=== PATIENT | male | born 1930 | race Caucasian/White ===

== ENCOUNTER 2018-08-08 21:17 | Inpatient (IN) | payer MEDICARE, OTHER ==
[~2018-08-08] VITALS: Ht 177.8 cm; Wt 89.6 kg
[~2018-08-08 21:17] MED LIST: ALBU90OI INH; AMLO5 PO; ASCO500 PO; ASPI325 PO; BETA1 PO; CALCAVITDA PO; CHOL10002 PO; CLOT1TC TOP; FISH1000 PO; FLUNNIA; GLIP10 PO; HYDACE10B PO; HYDACE5 PO; Hydrochlorothia50 MG PO; IBUP400 PO; INSN100I SC; INSUASPI SC; LORA10ER PO; LOSHYD PO; METF850 PO; METO50ER PO; MULVITMINF PO; NYST100TC TOP; OMEP20ER PO; POLY17UD PO; RANI150 PO; TAMS.4ER PO; TERA5 PO
[2018-08-08 21:30] LABS: PCO2 Arterial 49.4 mmHg (35-45); PO2 Arterial 75.3 mmHg (80-100); pH Blood Arterial 7.37 (7.35-7.45)
[2018-08-08 21:40] LABS: BASOPHILS ABSOLUTE AUTO 0.09 K/mm3 (0.00-0.23); BASOPHILS PERCENT AUTO 1 % (0-2); EOSINOPHILS ABSOLUTE AUTO 1.11 K/mm3 (0.00-0.68); EOSINOPHILS PERCENT AUTO 13 % (0-6); Hematocrit 45.7 % (37.0-53.0); Hemoglobin 14.3 g/dL (13.5-17.5); IMMATURE GRAN ABSOLUTE AUTO 0.03 K/mm3 (0.00-0.10); IMMATURE GRAN PERCENT AUTO 0 % (0-1); LYMPHOCYTES ABSOLUTE AUTO 1.73 K/mm3 (0.84-5.20); LYMPHOCYTES PERCENT AUTO 21 % (21-46); MONOCYTES ABSOLUTE AUTO 0.73 K/mm3 (0.16-1.47); MONOCYTES PERCENT AUTO 9 % (4-13); Mean Corpuscular HGB 33.2 pg (26.0-34.0); Mean Corpuscular HGB Conc 31.3 g/dL (31.5-36.5); Mean Corpuscular Volume 106 fL (80-100); Mean Platelet Volume 8.8 fL (9.1-12.4); NEUTROPHILS ABSOLUTE AUTO 4.64 K/mm3 (1.96-9.15); NEUTROPHILS PERCENT AUTO 56 % (41-73); Platelet Count 243 K/mm3 (150-400); RDW Standard Deviation 55.3 fL (35.1-46.3); Red Blood Cell Count 4.31 M/mm3 (4.30-5.90); White Blood Cell Count 8.33 K/mm3 (4.00-11.30)
[2018-08-08] MEDS ORDERED: CEFD300 PO (21:44)
[2018-08-08] MEDS ORDERED: TRAZ50 PO (21:44)
[2018-08-08] MEDS ORDERED: Bactrim Ds Tab1 EACH PO (21:45)
[2018-08-08] MEDS ORDERED: DOCCAL240 PO (21:45)
[2018-08-08] MEDS ORDERED: ALBU90OI61 INH (21:46)
[2018-08-08] MEDS ORDERED: BENZ100A PO (21:47)
[2018-08-08] MEDS ORDERED: Mucinex100 MG PO (21:48)
[2018-08-08 22:03] LABS: Alanine Aminotransfer (ALT/SGP 20 U/L (12-78); Albumin, Blood 3.7 g/dL (3.4-5.0); Albumin/Globulin Ratio 0.9 (0.8-1.8); Alk Phos 124 U/L (50-136); Anion Gap 6 mmol/L (6-16); Aspartate Aminotrans (AST/SGOT 14 U/L (12-37); Bilirubin, Total 0.5 mg/dL (0.1-1.0); Blood Urea Nitrogen 20 mg/dL (8-24); Bun/Creatinine Ratio 18.5 (12.0-20.0); CO2, Blood 30 mmol/L (21-32); Calcium, Blood 8.9 mg/dL (8.5-10.1); Chloride, Blood 99 mmol/L (98-108); Creatinine, Blood 1.08 mg/dL (0.60-1.20); Globulin, Blood 3.9 g/dL (2.2-4.0); Glomerular Filtration Rate >60 (60-); Glucose, Blood 126 mg/dL (70-99); Potassium, Blood 4.5 mmol/L (3.5-5.5); Sodium, Blood 135 mmol/L (136-145); Total Protein, Blood 7.6 g/dL (6.4-8.2); Troponin I <0.015 ng/mL (0.000-0.040)
[2018-08-09 06:33] LABS: Hematocrit 43.3 % (37.0-53.0); Hemoglobin 13.5 g/dL (13.5-17.5); Mean Corpuscular HGB 33.3 pg (26.0-34.0); Mean Corpuscular HGB Conc 31.2 g/dL (31.5-36.5); Mean Corpuscular Volume 107 fL (80-100); Mean Platelet Volume 9.2 fL (9.1-12.4); Platelet Count 231 K/mm3 (150-400); RDW Standard Deviation 55.6 fL (35.1-46.3); Red Blood Cell Count 4.05 M/mm3 (4.30-5.90); White Blood Cell Count 7.59 K/mm3 (4.00-11.30)
[2018-08-09 06:52] LABS: Alanine Aminotransfer (ALT/SGP 21 U/L (12-78); Albumin, Blood 3.2 g/dL (3.4-5.0); Albumin/Globulin Ratio 0.9 (0.8-1.8); Alk Phos 112 U/L (50-136); Anion Gap 8 mmol/L (6-16); Aspartate Aminotrans (AST/SGOT 17 U/L (12-37); Bilirubin, Total 0.6 mg/dL (0.1-1.0); Blood Urea Nitrogen 20 mg/dL (8-24); Bun/Creatinine Ratio 20.7 (12.0-20.0); CO2, Blood 25 mmol/L (21-32); Calcium, Blood 8.6 mg/dL (8.5-10.1); Chloride, Blood 99 mmol/L (98-108); Creatinine, Blood 0.97 mg/dL (0.60-1.20); Globulin, Blood 3.7 g/dL (2.2-4.0); Glomerular Filtration Rate >60 (60-); Glucose, Blood 198 mg/dL (70-99); Potassium, Blood 5.2 mmol/L (3.5-5.5); Sodium, Blood 132 mmol/L (136-145); Total Protein, Blood 6.9 g/dL (6.4-8.2)
[2018-08-09] MEDS ORDERED: ACETAMINOPHEN500 MG PO (14:02)
[2018-08-09] MEDS ORDERED: ASPI325EC PO (14:03)
[2018-08-09] MEDS ORDERED: Metformin HCl500 MG PO (14:04)
[2018-08-09] MEDS ORDERED: OMEPRAZOLE MAGN20 MG PO (14:05)
[2018-08-09] MEDS ORDERED: FLONASE ALLERG9.9 ML (14:06)
[2018-08-09] MEDS ORDERED: Vitamin B Comple1 EA PO (14:09)
[2018-08-09] MEDS ORDERED: ASCO500 PO (14:10)
[2018-08-09] MEDS ORDERED: ALBU90OI INH (14:12)
--- NOTE | 2018-08-09 22:30 | NUR ---
RESPIRATORY PANEL COMPLETED AT 2226 AND RESULTS (-).
[2018-08-09 23:51] LABS: Adenovirus Not Detected (NOT DETECT); Bordetella pertussis Not Detected (NOT DETECT); Chlamydophila pneumoniae Not Detected (NOT DETECT); Coronavirus 229E Not Detected (NOT DETECT); Coronavirus HKU1 Not Detected (NOT DETECT); Coronavirus NL63 Not Detected (NOT DETECT); Coronavirus OC43 Not Detected (NOT DETECT); Human Metapneumovirus Not Detected (NOT DETECT); Human Rhinovirus/Enterovirus Not Detected (NOT DETECT); Influenza A Not Detected (NOT DETECT); Influenza A/2009-H1 Not Detected (NOT DETECT); Influenza A/H1 Not Detected (NOT DETECT); Influenza A/H3 Not Detected (NOT DETECT); Influenza B Not Detected (NOT DETECT); Mycoplasma pneumoniae Not Detected (NOT DETECT); Parainfluenza Virus 1 Not Detected (NOT DETECT); Parainfluenza Virus 2 Not Detected (NOT DETECT); Parainfluenza Virus 3 Not Detected (NOT DETECT); Parainfluenza Virus 4 Not Detected (NOT DETECT); Respiratory Syncytial Virus Not Detected (NOT DETECT)
--- NOTE | 2018-08-10 00:30 | NUR ---
SPUTUM SPECIMEN WAS OBTAINED AND SENT AT 0012, RESULTS PENDING. CADENA THICK SPUTUM OBSERVED BUT COUGH HAS BEEN DRY AND SEAT MAKER OTHERWISE.
--- NOTE | 2018-08-10 04:48 | NUR ---
SUMMARY: PT T/F'D TO ROOM 331 PRIOR TO SHIFT CHANGE BUT ADMISSION PAPERWORK COMPLETED BY SYD MEREDITH. HE'S A/OX4, SPECIFIES NEEDS AND IS COOPERATIVE W/CARE. HE WEARS CONDOM CATH AT BASELINE BUT IT FAILED THIS SHIFT DESPITE ATTEMPTS AND REPLACING IT. HE HAS SINCE USED URINAL AND WILL HAVE HOME CAREGIVERS BRING IN HIS OWN SUPPLIES. PT WASN'T OOB THIS SHIFT BUT IS A PIVOT T/F AND USES FWW AND CANE AT HOME D/T IMMOBILE R.KNEE JOINT FROM IMPLANTED METAL DANIEL. HE REMAINS ON RA W/SPO2 WNL AND RESPS E/U. OCCASIONAL DRY HACKING COUGH OBSERVED AND PRN TESSALON PERLS RECIVED X1 FOR GOOD EFFECT. HE HAD ONE EPISODE OF CADENA THICK SPUTUM W/SPECIMEN OBTAINED AND SENT, RESULTS PENDING. RESPIRATORY PANEL COMPLETED WELL, RESULTS (-). HE ALSO C/O OF HICCUPS AND INDIGESTION W/TUMS AND PRILOSEC RECIEVED FOR ADEQUATE RELIEF. PT CONT'S IN AFIB (NORMAL AT BASE- LINE) W/RATE 70'S-90'S PER TELEMETRY. NO ACUTE CHANGES, VSS/AFEBRILE. WILL MONITOR AND REPORT TO DAY RN.
[2018-08-10 05:27] LABS: BASOPHILS ABSOLUTE AUTO 0.02 K/mm3 (0.00-0.23); BASOPHILS PERCENT AUTO 0 % (0-2); EOSINOPHILS PERCENT AUTO 0 % (0-6); Hematocrit 43.3 % (37.0-53.0); Hemoglobin 13.5 g/dL (13.5-17.5); IMMATURE GRAN ABSOLUTE AUTO 0.12 K/mm3 (0.00-0.10); IMMATURE GRAN PERCENT AUTO 1 % (0-1); LYMPHOCYTES ABSOLUTE AUTO 0.69 K/mm3 (0.84-5.20); LYMPHOCYTES PERCENT AUTO 4 % (21-46); MONOCYTES ABSOLUTE AUTO 0.35 K/mm3 (0.16-1.47); MONOCYTES PERCENT AUTO 2 % (4-13); Mean Corpuscular HGB 32.7 pg (26.0-34.0); Mean Corpuscular HGB Conc 31.2 g/dL (31.5-36.5); Mean Corpuscular Volume 105 fL (80-100); NEUTROPHILS ABSOLUTE AUTO 15.16 K/mm3 (1.96-9.15); NEUTROPHILS PERCENT AUTO 93 % (41-73); Platelet Count 264 K/mm3 (150-400); RDW Coefficient Variation 14.2 % (11.7-14.2); RDW Standard Deviation 55.1 fL (35.1-46.3); Red Blood Cell Count 4.13 M/mm3 (4.30-5.90); White Blood Cell Count 16.34 K/mm3 (4.00-11.30)
[2018-08-10 05:52] LABS: Albumin, Blood 3.3 g/dL (3.4-5.0); Anion Gap 5 mmol/L (6-16); Blood Urea Nitrogen 32 mg/dL (8-24); Bun/Creatinine Ratio 25.8 (12.0-20.0); CO2, Blood 28 mmol/L (21-32); Chloride, Blood 99 mmol/L (98-108); Creatinine, Blood 1.24 mg/dL (0.60-1.20); Glomerular Filtration Rate 58 (60-); Glucose, Blood 178 mg/dL (70-99); Phosphorus, Blood 2.9 mg/dL (2.5-4.9); Potassium, Blood 4.7 mmol/L (3.5-5.5); Sodium, Blood 132 mmol/L (136-145)
--- NOTE | 2018-08-10 16:18 | NUR ---
SHIFT SUMMARY NO ACUTE CHANGES. PATIENT HAD SCHEDULED BREATHING TREATMENTS AND USED 2L 02 NEEDED TO RECOVER FROM COUGHING EPISODES. PATIENT RESTED, VISITED WITH FAMILY TODAY. NO COMPLAINTS OF PAIN OR NAUSEA. CALL LIGHT IN REACH, WILL CONTINUE TO MONITOR.
--- NOTE | 2018-08-10 17:15 | NUR ---
Patient agreed to let this Student work with the patient and access medical information.
[2018-08-11 05:38] LABS: BASOPHILS ABSOLUTE AUTO 0.01 K/mm3 (0.00-0.23); BASOPHILS PERCENT AUTO 0 % (0-2); EOSINOPHILS PERCENT AUTO 0 % (0-6); Hematocrit 40.8 % (37.0-53.0); IMMATURE GRAN ABSOLUTE AUTO 0.14 K/mm3 (0.00-0.10); IMMATURE GRAN PERCENT AUTO 1 % (0-1); LYMPHOCYTES ABSOLUTE AUTO 0.47 K/mm3 (0.84-5.20); LYMPHOCYTES PERCENT AUTO 3 % (21-46); MONOCYTES ABSOLUTE AUTO 0.34 K/mm3 (0.16-1.47); MONOCYTES PERCENT AUTO 2 % (4-13); Mean Corpuscular HGB 32.5 pg (26.0-34.0); Mean Corpuscular HGB Conc 31.9 g/dL (31.5-36.5); Mean Platelet Volume 8.8 fL (9.1-12.4); NEUTROPHILS PERCENT AUTO 93 % (41-73); Platelet Count 233 K/mm3 (150-400); RDW Coefficient Variation 14.2 % (11.7-14.2); RDW Standard Deviation 53.5 fL (35.1-46.3); White Blood Cell Count 14.66 K/mm3 (4.00-11.30)
[2018-08-11 05:55] LABS: Albumin, Blood 3.1 g/dL (3.4-5.0); Anion Gap 7 mmol/L (6-16); Blood Urea Nitrogen 39 mg/dL (8-24); Bun/Creatinine Ratio 36.8 (12.0-20.0); CO2, Blood 27 mmol/L (21-32); Calcium, Blood 8.8 mg/dL (8.5-10.1); Chloride, Blood 101 mmol/L (98-108); Creatinine, Blood 1.06 mg/dL (0.60-1.20); Glomerular Filtration Rate >60 (60-); Glucose, Blood 201 mg/dL (70-99); Phosphorus, Blood 3.1 mg/dL (2.5-4.9); Potassium, Blood 4.3 mmol/L (3.5-5.5); Sodium, Blood 135 mmol/L (136-145)
[2018-08-11 05:56] LABS: Mean Corpuscular Volume 102 fL (80-100)
--- NOTE | 2018-08-11 07:57 | NUR ---
PT CONTINUES ON ROOM AIR WITHOUT COMPLAINTS OF ACUTE DISTRESS. ON IV STEROIDS FOR COPD. SAYS HE SLEPT WELL. NOT UP OUT OF BED THIS SHIFT. ROBITUSSIN AC FOR LOOSE MOIST NONPROD COUGH WITH HELPFUL EFFECT. PT CONTINUES ON TELE IN AFIB WITH BBB AND FREQ PVCS 9 OR 10 PER MINUTE. LIV[facility]SIDE [facility], LIVES WITH SPOUSE AND 18 YEAR OLD GRANDDAUGHTER.
--- NOTE | 2018-08-11 16:22 | NUR ---
SHIFT SUMMARY NO ACUTE CHANGES. PATIENT REPORTS HE IS FEELING BETTER. PATIENT COUGHING LESS OFTEN. SCHEDULED BREATHING TREATMENTS. PATIETN UP IN CHAIR MOST OF SHIFT. PATIENT WILL LIKELY DISCHARGE TOMORROW. DENIES PAIN, NAUSEA, OR SHORTNESS OF BREATH. CALL LIGHT IN REACH, WILL CONTINUE TO MONITOR.
--- NOTE | 2018-08-12 06:35 | NUR ---
SHIFT SUMMARY PT AWAKE ON/OFF T/O NIGHT. AOX4. VSS. DENIES PAIN OR N/V. REPORTS SOB W/EXERTION BUT DENIES ANY @REST. LUNGS HAVE INSPIRATORY/EXPIRATORY WHEEZES T/O, SPO2 >90% ON RA, E/U BREATHING. CONDOM CATH IN PLACE. CALL LIGHT IN REACH & I WILL CONT. TO MONITOR PT.
--- NOTE | 2018-08-12 17:46 | NUR ---
Echocardiogram completed.
--- NOTE | 2018-08-12 19:49 | NUR ---
SHIFT SUMMARY PATIENT A&0X4. DENIES PAIN, SOB THIS SHIFT. RN MEDICATED PER EMAR. PATIENT RESTED THROUGHOUT THE SHIFT. NO ACUTE CHANGES.
[2018-08-13 05:23] LABS: BASOPHILS ABSOLUTE AUTO 0.04 K/mm3 (0.00-0.23); BASOPHILS PERCENT AUTO 0 % (0-2); EOSINOPHILS PERCENT AUTO 0 % (0-6); Hematocrit 44.4 % (37.0-53.0); IMMATURE GRAN PERCENT AUTO 2 % (0-1); LYMPHOCYTES ABSOLUTE AUTO 1.12 K/mm3 (0.84-5.20); LYMPHOCYTES PERCENT AUTO 9 % (21-46); MONOCYTES ABSOLUTE AUTO 1.13 K/mm3 (0.16-1.47); MONOCYTES PERCENT AUTO 9 % (4-13); Mean Corpuscular HGB 33.2 pg (26.0-34.0); Mean Corpuscular HGB Conc 31.5 g/dL (31.5-36.5); Mean Corpuscular Volume 105 fL (80-100); Mean Platelet Volume 9.1 fL (9.1-12.4); NEUTROPHILS ABSOLUTE AUTO 9.72 K/mm3 (1.96-9.15); NEUTROPHILS PERCENT AUTO 79 % (41-73); Platelet Count 189 K/mm3 (150-400); RDW Coefficient Variation 13.8 % (11.7-14.2); RDW Standard Deviation 54.1 fL (35.1-46.3); Red Blood Cell Count 4.22 M/mm3 (4.30-5.90); White Blood Cell Count 12.31 K/mm3 (4.00-11.30)
[2018-08-13 05:59] LABS: Albumin, Blood 2.9 g/dL (3.4-5.0); Anion Gap 7 mmol/L (6-16); Blood Urea Nitrogen 45 mg/dL (8-24); Bun/Creatinine Ratio 36.6 (12.0-20.0); CO2, Blood 28 mmol/L (21-32); Calcium, Blood 8.5 mg/dL (8.5-10.1); Chloride, Blood 101 mmol/L (98-108); Creatinine, Blood 1.23 mg/dL (0.60-1.20); Glomerular Filtration Rate 59 (60-); Glucose, Blood 144 mg/dL (70-99); Phosphorus, Blood 2.8 mg/dL (2.5-4.9); Potassium, Blood 4.2 mmol/L (3.5-5.5); Sodium, Blood 136 mmol/L (136-145)
--- NOTE | 2018-08-13 07:09 | NUR ---
SHIFT SUMMARY: PT IS A&O X 4, INDEPEDENT IN RM. LIMITED ROM IN R KNEE; LEG IS STIFF AND RIGID D/T METAL PLATE FROM KNEE REPLACEMENT SURGERY. TELE IN PLACE; A FIB c BBB @ 84 bpm. EXP/INS WHEEZE T/O ALL LUNG DURON. TOLERATING ROOM AIR AT THIS TIME. CONDOM CATH IN PLACE; LEG BAG ON RLE; PT CARING FOR INDEPENDENTLY. CBG ACHS; PM BLOOD SUGAR WNL; NO COV INDICATED. ROBITUSSIN ADMINISTERED 1X FOR THICK SECRETIONS AND COUGH. POSSIBLE D/C TODAY. WILL CONT TO MONITOR AND PROVIDE CARE UNTIL PRESUMED BY ONCOMING RN.
--- NOTE | 2018-08-13 16:33 | NUR ---
SHIFT SUMMARY PATIENT A&O X4. DENIES ANY PAIN OR SOB THIS SHIFT. RN MEDICATED PER E AUG FOR PRODUCTION COUGH. PATIENT HAS BEEN RESTING THROUGHOUT THE SHIFT. NO ACUTE CHANGES. RN WILL CONTINUE TO MONITOR.
--- NOTE | 2018-08-14 06:44 | NUR ---
pt continues on iv levaquin for uri copd. 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 He says he has been on 2 oral antibiotics daily for last several years due to reoccuring joint infections. tolerating diet and activity. PT continues afib with bbb pvcs. pleasant talkative.
--- NOTE | 2018-08-14 18:00 | NUR ---
NO ACUTE CHANGES NOTED THIS SHIFT, TELE DISCONTINUED PER ORDER. PT WITH SEVERAL VISITORS THIS AFTERNOON, NO C/O PAIN OR DISCOMFORT. WILL CONTINUE TO MONITOR AND REPORT TO ONCOMING RN
--- NOTE | 2018-08-15 05:58 | NUR ---
PT changed to oral levaquin and has intermittant thick yellow or green sputum. up indep or sba in room with fww. co mild kidney pain but delines medication. continues on room air. medicated x 1 for cough with tessalon and robitussin with helpful effect. chronic afib tele has been dc. Tolerating diet and activity.
--- NOTE | 2018-08-15 18:54 | NUR ---
PT C/O OF INCREASED ABD PAIN TODAY. ABD XRAY DONE, PT RECEIVING LACTULOSE AFTER XRAY. POSSIBLE DISCHARGE HOME TOMORROW. NO ACUTE CHANGES NOTED THIS SHIFT, WILL CONTINUE TO MONITOR AND REPORT TO ONCOMING RN.
--- NOTE | 2018-08-16 19:34 | NUR ---
summary PT IS A/O X4, PLEASANT AFFECT. STATE NO PAIN TODAY. STATE NO SOB @ REST. LUNGS DECREASED W EXP WHEEZE THIS AM, BIOX >90% ON RA.STATE STATE BREATHING IMPROVED. DR VERONICA IN TO SEE HIM THIS AM, PT STATE DOES NOT FEEL READY FOR D/C R/T L ABD "TENDER, HOT". HE HAD CONSTIPATION YESTERDAY & MULT BM'S, DECLINED BOWEL MEDS THIS AM, STATE FEELS LIKE HE HAS EXCESS GAS, PRN TUMS GIVEN. HE HAS BEEN UP AMBULATING IN ROOM WITH FWW FOR RELIEF MULT X'S, HX LLE SURG W METAL DANIEL, EXTENSIVE SCAR HOWEVER HE IS ABLE TO STAND, BR WT SBA. HX URINARY INCONTINENCE, USES CONDOM CATHS FROM HOME W LEG BAG. VSS.
--- NOTE | 2018-08-17 04:53 | NUR ---
PT INDEPENDENTLY REPLACING CONDOM CATH AND PERFORMING SELF CARE AT THIS TIME. LEG BAG TO R LEG
[2018-08-17 06:45] LABS: BASOPHILS ABSOLUTE AUTO 0.03 K/mm3 (0.00-0.23); BASOPHILS PERCENT AUTO 0 % (0-2); EOSINOPHILS ABSOLUTE AUTO 0.09 K/mm3 (0.00-0.68); EOSINOPHILS PERCENT AUTO 1 % (0-6); Hematocrit 44.5 % (37.0-53.0); Hemoglobin 14.1 g/dL (13.5-17.5); IMMATURE GRAN ABSOLUTE AUTO 0.35 K/mm3 (0.00-0.10); IMMATURE GRAN PERCENT AUTO 2 % (0-1); LYMPHOCYTES ABSOLUTE AUTO 1.51 K/mm3 (0.84-5.20); LYMPHOCYTES PERCENT AUTO 10 % (21-46); MONOCYTES ABSOLUTE AUTO 1.24 K/mm3 (0.16-1.47); MONOCYTES PERCENT AUTO 8 % (4-13); Mean Corpuscular HGB Conc 31.7 g/dL (31.5-36.5); Mean Corpuscular Volume 104 fL (80-100); Mean Platelet Volume 9.4 fL (9.1-12.4); NEUTROPHILS ABSOLUTE AUTO 12.02 K/mm3 (1.96-9.15); NEUTROPHILS PERCENT AUTO 79 % (41-73); Platelet Count 133 K/mm3 (150-400); RDW Coefficient Variation 14.2 % (11.7-14.2); Red Blood Cell Count 4.27 M/mm3 (4.30-5.90); White Blood Cell Count 15.24 K/mm3 (4.00-11.30)
[2018-08-17 06:59] LABS: Anion Gap 5 mmol/L (6-16); Blood Urea Nitrogen 37 mg/dL (8-24); Bun/Creatinine Ratio 34.3 (12.0-20.0); CO2, Blood 32 mmol/L (21-32); Calcium, Blood 8.3 mg/dL (8.5-10.1); Chloride, Blood 101 mmol/L (98-108); Creatinine, Blood 1.08 mg/dL (0.60-1.20); Glomerular Filtration Rate >60 (60-); Glucose, Blood 144 mg/dL (70-99); Potassium, Blood 4.3 mmol/L (3.5-5.5); Sodium, Blood 138 mmol/L (136-145)
--- NOTE | 2018-08-17 07:38 | NUR ---
SHIFT SUMMARY: PT ADMITTED FOR COPD EXACERBATION THAT HAS BEEN RESOLVED. PT IS BACK TO RESPIRATORY BASELINE. A&O X 3, SBA IN ROOM. LS DIM T/O; TOLERATING ROOM AIR @ 96%. PT C/O OF LLQ PAIN, A "HOT" SENSATION THAT RADIATES TO BACK AND IS SOMETIMES CRAMPING. ADMINISTERED MILK OF MAG AND STOOL SOFTENER. PT HAD BM THIS AM; BROWN, FORMED, SMALL. CONDOM CATH IN PLACE c LEG BAG TO R LEG ; PT IS PROVIDING SELF CARE AND CHANGED IT THIS AM. NO IV ACCESS. NO OTHER CHANGES TO REPORT. WILL CONT TO MONITOR AND PROVIDE CARE UNTIL PRESUMED BY ONCOMING RN.
--- NOTE | 2018-08-17 16:01 | NUR ---
SUMMARY PT IS A/O X4, PLEASANT/COOPERATIVE. HE CONTINUES TO HAVE L ABD PAIN/DISCOMFORT THAT RADIATES TO HIS BACK, DESCIBES "HOT, SHARP", INTERMITTANT. ABD IS ROUND/DISTENDED HOWEVER HE STATE NORMAL. DR VERONICA ORDER GI COCKTAIL HOWEVER PT STATE LITTLE/NO RELIEF. ORDER CT ABD, RADIOLOGY DELIVER ORAL CONTRAST, PT NPO @ THIS TIME, PROCEDURE @ 1999. GAVE TUMS & REGLAN THIS AFTERNOON, PT STATE SOME RELIEF. HE STATE AMBULATING IN ROOM ALSO PROVIDE RELIEF, UP WITH MIN ASSIST, AMB W FWW IND. VSS.
--- NOTE | 2018-08-18 04:37 | NUR ---
SHIFT SUMMARY PT HAD CT ABDOMEN DONE THIS SHIFT, NO RESULTS NOTED YET. PT SLEPT WELL DURING THE NIGHT, DENIES ABDOMINAL DISCOMFORT THIS SHIFT. ATE DINNER AFTER CT SCAN, TOLERATED WELL. NO ACUTE EVENTS NOTED DURING THE NIGHT. WILL CONTINUE TO MONITOR.
[2018-08-18 13:46] LABS: Source, Urine Catheter
[2018-08-18 13:51] LABS: Appearance, Urine Hazy (Clear); Bilirubin, Urine Neg (Neg); Blood, Urine 5+ (Neg); Color, Urine Yellow (P-Yellow); Glucose Qualitative, Urine 2+ (Neg); Ketones, Urine Neg (Neg); Leukocyte Esterase, Urine 1+ (Neg); Nitrite, Urine Neg (Neg); Protein, Urine 2+ (Neg); Specific Gravity, Urine 1.015 (1.003-1.022); Urobilinogen, Urine NORM (Normal)
[2018-08-18 14:13] LABS: Squamous Epithelial Cells Not Seen /hpf (Few)
[2018-08-18 14:14] LABS: Bacteria Rare /hpf
--- NOTE | 2018-08-18 18:19 | NUR ---
SHIFT SUMMARY PT AXO, PLEASANT AND COOPERATIVE WITH CARE THOUGH FORGETFUL AT TIMES. VSS, AFEBRILE. BARON PLACED THIS SHIFT PER ORDER. INITIALLY 1400, CLEAR URINE DRAINED. SAMPLE SEND TO LAB PER PROTOCOL. PT REPORTS THAT HIS PAIN HAS COMPLETELY RESOLVED SINCE BARON WAS PLACED. PT DENIES SOB, NV. BED IN LOW POSITION, CALL LIGHT WITHIN REACH. PT UP TO CHAIR FOR MEALS.
--- NOTE | 2018-08-19 06:33 | NUR ---
pt continues on room air, without complaints of pain or acute distress. Lamar cath placed on day shift for acute urinary retention, hydronephrosis. rested well. PT says he has daily caregiver who gets daily meals ready and can assist with cares if needed. Continues on oral levaquin for uri uti
[2018-08-19] MEDS ORDERED: ACET325 PO (11:32)
[2018-08-19] MEDS ORDERED: BENZ100A PO (11:33)
[2018-08-19] MEDS ORDERED: DOCU100 PO (11:33)
[2018-08-19] MEDS ORDERED: LEVFLO500 PO (11:34)
[2018-08-19] MEDS ORDERED: Acidophilus La100 GM PO (11:35)
[2018-08-19] MEDS ORDERED: Miralax17 GM PO (11:36)
[2018-08-19] MEDS ORDERED: PSYSENPA PO (11:36)
[2018-08-19] MEDS ORDERED: PRED20 PO (11:40)
--- NOTE | 2018-08-19 13:00 | NUR ---
REVIEW D'C W/PATIENT AND RELATIVES. REVIEW BARON CARE. CHANGED OUT BAG TO LEG BAG IN FRONT OF RELATIVES SO THEY KNOW HOW TO DO. HAS F/U APPT TODAY AT .[facility]. AND AWARE TO GET UROLOGY APPT AND HAVE THEM ORDER HH. ANSWER ALL QUESTIONS. IN W/C W/ESCORT TO POV. MED LIST, H&P FAXED TO [facility] AT [facility].
== END 2018-08-19 13:00 | disposition home or self-care (01) | DRG 189 ==
LOC: ER 21:17 → ERHOLD 23:50 → MEDS 08-09 18:45
PROVIDERS: Emergency Medicine; Internal Medicine; ADMIT Internal Medicine
DX: J96.21 Acute and chronic respiratory failure with hypoxia (principal); J44.1 Chronic obstructive pulmonary disease with (acute) exacerbation; N13.8 Other obstructive and reflux uropathy; N13.30 Unspecified hydronephrosis; N17.9 Acute kidney failure, unspecified; L03.116 Cellulitis of left lower limb; E87.1 Hypo-osmolality and hyponatremia; I48.91 Unspecified atrial fibrillation; I10 Essential (primary) hypertension; N40.1 Benign prostatic hyperplasia with lower urinary tract symptoms; K59.00 Constipation, unspecified; E66.9 Obesity, unspecified; M06.9 Rheumatoid arthritis, unspecified; E11.65 Type 2 diabetes mellitus with hyperglycemia; T38.0X5A Adverse effect of glucocorticoids and synthetic analogues, initial encounter; Z86.73 Personal history of transient ischemic attack (TIA), and cerebral infarction without residual deficits; Z86.14 Personal history of Methicillin resistant Staphylococcus aureus infection; Z79.899 Other long term (current) drug therapy; Z88.8 Allergy status to other drugs, medicaments and biological substances; Z87.891 Personal history of nicotine dependence
CPT/HCPCS: 36415; 36600; 71045; 71046; 74018; 74176; 80048; 80053; 80069; 81001; 82607; 82746; 82803; 82947; 83690; 83735; 83880; 84145; 84484; 85025; 85027; 87070; 87086; 87205; 87486; 87581; 87633; 87798; 93005; 93010; 93306; 94640; 94644; 94760; 94761; 96372-59; 96374; 96375; 96376; 99285-25; J1650; J1940; J1956; J2930; J3420; J7050

== ENCOUNTER 2019-02-20 12:02 | Emergency (ER) | payer MEDICARE, OTHER ==
[~2019-02-20] VITALS: Ht 177.8 cm; Wt 83.9 kg
[~2019-02-20 12:02] MED LIST changes: +ACET325 PO; +ACETAMINOPHEN500 MG PO; +ALBU90OI61 INH; +ASPI325EC PO; +Acidophilus La100 GM PO; +BENZ100A PO; +Bactrim Ds Tab1 EACH PO; +CEFD300 PO; +DOCCAL240 PO; +DOCU100 PO; +FLONASE ALLERG9.9 ML; +LEVFLO500 PO; +Metformin HCl500 MG PO; +Miralax17 GM PO; +Mucinex100 MG PO; +OMEPRAZOLE MAGN20 MG PO; +PRED20 PO; +PSYSENPA PO; +TRAZ50 PO; +Vitamin B Comple1 EA PO
== END 2019-02-20 13:55 | disposition home or self-care (01) ==
LOC: ER 12:02
DX: T83.031A Leakage of indwelling urethral catheter, initial encounter (principal); I11.0 Hypertensive heart disease with heart failure; I50.30 Unspecified diastolic (congestive) heart failure; E11.9 Type 2 diabetes mellitus without complications; J44.9 Chronic obstructive pulmonary disease, unspecified; I48.91 Unspecified atrial fibrillation; Z87.891 Personal history of nicotine dependence; Z88.8 Allergy status to other drugs, medicaments and biological substances; Z79.899 Other long term (current) drug therapy; Z79.84 Long term (current) use of oral hypoglycemic drugs; Z79.82 Long term (current) use of aspirin; Z79.52 Long term (current) use of systemic steroids
CPT/HCPCS: 51702; 99283

== ENCOUNTER 2019-05-02 09:03 | Inpatient (IN) | payer OTHER, MEDICARE ==
[~2019-05-02] VITALS: Ht 175.3 cm; Wt 88.9 kg
[2019-05-02] MEDS ORDERED: DOCU100 PO (09:26)
[2019-05-02] MEDS ORDERED: LACT PO (09:27)
[2019-05-02] MEDS ORDERED: SENN187 PO (09:28)
[2019-05-02 10:23] LABS: BASOPHILS ABSOLUTE AUTO 0.04 K/mm3 (0.00-0.23); BASOPHILS PERCENT AUTO 0 % (0-2); EOSINOPHILS ABSOLUTE AUTO 0.01 K/mm3 (0.00-0.68); EOSINOPHILS PERCENT AUTO 0 % (0-6); Hematocrit 42.1 % (37.0-53.0); Hemoglobin 13.6 g/dL (13.5-17.5); IMMATURE GRAN ABSOLUTE AUTO 0.11 K/mm3 (0.00-0.10); IMMATURE GRAN PERCENT AUTO 1 % (0-1); LYMPHOCYTES ABSOLUTE AUTO 0.52 K/mm3 (0.84-5.20); LYMPHOCYTES PERCENT AUTO 4 % (21-46); MONOCYTES ABSOLUTE AUTO 0.59 K/mm3 (0.16-1.47); MONOCYTES PERCENT AUTO 4 % (4-13); Mean Corpuscular HGB 31.9 pg (26.0-34.0); Mean Corpuscular HGB Conc 32.3 g/dL (31.5-36.5); Mean Corpuscular Volume 99 fL (80-100); NEUTROPHILS ABSOLUTE AUTO 12.36 K/mm3 (1.96-9.15); NEUTROPHILS PERCENT AUTO 91 % (41-73); NRBC ABSOLUTE 0.02 K/mm3 (0.00-0.02); NRBC Auto 0.1 /100 WBC (0.0-0.2); RDW Coefficient Variation 16.1 % (11.7-14.2); RDW Standard Deviation 58.7 fL (35.1-46.3); Red Blood Cell Count 4.26 M/mm3 (4.30-5.90); White Blood Cell Count 13.63 K/mm3 (4.00-11.30)
[2019-05-02 10:38] LABS: Albumin, Blood 2.6 g/dL (3.4-5.0); Albumin/Globulin Ratio 0.5 (0.8-1.8); Bilirubin, Total 0.4 mg/dL (0.1-1.0); Bun/Creatinine Ratio 23.5 (12.0-20.0); Calcium, Blood 8.8 mg/dL (8.5-10.1); Creatinine, Blood 2.26 mg/dL (0.60-1.20); Globulin, Blood 4.8 g/dL (2.2-4.0); Potassium, Blood 4.7 mmol/L (3.5-5.5); Total Protein, Blood 7.4 g/dL (6.4-8.2)
[2019-05-02 10:41] LABS: Mean Platelet Volume 10.3 fL (9.1-12.4); Platelet Count 190 K/mm3 (150-400)
[2019-05-02 11:22] LABS: Source, Urine Catheter
[2019-05-02 11:34] LABS: Bilirubin, Urine Neg (Neg); Blood, Urine 4+ (Neg); Glucose Qualitative, Urine Neg (Neg); Ketones, Urine Neg (Neg); Leukocyte Esterase, Urine 3+ (Neg); Nitrite, Urine Pos (Neg); Protein, Urine 3+ (Neg); Specific Gravity, Urine 1.015 (1.003-1.022); Urobilinogen, Urine NORM (Normal)
[2019-05-02 11:47] LABS: Appearance, Urine Cloudy (Clear); Color, Urine Yellow (P-Yellow)
[2019-05-02 11:48] LABS: White Blood Cells, Urine TNTC /hpf (0-5)
[2019-05-02 11:50] LABS: Bacteria Many /hpf; Squamous Epithelial Cells Few /hpf (Few); Uric Acid Crystals Many /hpf
[2019-05-02] MEDS ORDERED: VOLTAREN100 GM TOP (14:20)
[2019-05-02] MEDS ORDERED: ACET325 PO (14:22)
[2019-05-02] MEDS ORDERED: ALBU2.5V5 INH (14:23)
[2019-05-02] MEDS ORDERED: CEFD300 PO (14:25)
[2019-05-02] MEDS ORDERED: MIRALAX17 GM PO (14:26)
[2019-05-02] MEDS ORDERED: SALONPAS 3.1%-1 EACH TOP (14:27)
[2019-05-02] MEDS ORDERED: BACTRIM DS TAB1 EACH PO (14:28)
--- NOTE | 2019-05-02 18:49 | NUR ---
PT ARRIVAL. PT ARRVIED ON UNIT AT 1740. PT IS A&Ox4 AND POINT HOPE IRA. PT WAS ADMITTED FOR SEPSIS. PT HAS CHRONIC BARON, BARON WAS CHANGED IN ED PER ER REPORT. PT'S VS STABLE AT THIS TIME. PT DENIES CHEST PAIN/PRESSURE N/V OR SOB AT THIS TIME. PT C/O OF ABD PAIN W/ PALP. NO EDEMA NOTED ON ASSESSMENT. L/S WHEEZES NOTED IN THE UPPER LOBES, DIM T/O. PT IS ON RA. CALL LIGHT IN REACH, BED IS LOCKED AND LOW WILL CONTINUE TO MONITOR.
[2019-05-03 03:59] LABS: BASOPHILS ABSOLUTE AUTO 0.02 K/mm3 (0.00-0.23); BASOPHILS PERCENT AUTO 0 % (0-2); EOSINOPHILS ABSOLUTE AUTO 0.03 K/mm3 (0.00-0.68); EOSINOPHILS PERCENT AUTO 0 % (0-6); Hematocrit 35.5 % (37.0-53.0); Hemoglobin 11.1 g/dL (13.5-17.5); IMMATURE GRAN ABSOLUTE AUTO 0.14 K/mm3 (0.00-0.10); IMMATURE GRAN PERCENT AUTO 1 % (0-1); LYMPHOCYTES ABSOLUTE AUTO 0.49 K/mm3 (0.84-5.20); LYMPHOCYTES PERCENT AUTO 5 % (21-46); MONOCYTES ABSOLUTE AUTO 1.01 K/mm3 (0.16-1.47); MONOCYTES PERCENT AUTO 10 % (4-13); Mean Corpuscular HGB 31.5 pg (26.0-34.0); Mean Corpuscular HGB Conc 31.3 g/dL (31.5-36.5); Mean Corpuscular Volume 101 fL (80-100); Mean Platelet Volume 10.1 fL (9.1-12.4); NEUTROPHILS ABSOLUTE AUTO 8.83 K/mm3 (1.96-9.15); NEUTROPHILS PERCENT AUTO 84 % (41-73); Platelet Count 160 K/mm3 (150-400); RDW Coefficient Variation 16.2 % (11.7-14.2); RDW Standard Deviation 60.5 fL (35.1-46.3); Red Blood Cell Count 3.52 M/mm3 (4.30-5.90); White Blood Cell Count 10.52 K/mm3 (4.00-11.30)
[2019-05-03 04:18] LABS: Albumin/Globulin Ratio 0.5 (0.8-1.8); Bilirubin, Total 0.2 mg/dL (0.1-1.0); Bun/Creatinine Ratio 25.8 (12.0-20.0); Calcium, Blood 7.5 mg/dL (8.5-10.1); Creatinine, Blood 1.94 mg/dL (0.60-1.20); Globulin, Blood 3.8 g/dL (2.2-4.0); Potassium, Blood 4.4 mmol/L (3.5-5.5); Total Protein, Blood 5.8 g/dL (6.4-8.2)
--- NOTE | 2019-05-03 05:48 | NUR ---
SHIFT SUMMARY NO ACUTE EVENTS OVERNIGHT. AAOX4. VSS. PATIENT COMPLAINTS OF NAUSEA RESOLVED WITH PRESCRIBE ZOFRAN. PATIENT SLEPT THROUGH REST OF OPTOMETRIST ASSISTANT. BEDREST. BARON INTACT/PATENT. PATIENT USES FWW AT BASELINE. WILL CONTIUE TO MONITOR.
--- NOTE | 2019-05-03 08:27 | NUR ---
AM NOTE... ASSUMED CARE OF PT APROX 0700. PT IS A&Ox4. PT WAS ADMITTED FOR SEPSIS. PT HAS CHRONIC BARON D/T PROSTATE ENLARGMENT. PT'S VS STABLE AT THIS TIME. PT DENIES CHEST PAIN BUT C/O OF ABD PAIN, HOWEVER HE STATES THIS ABD PAIN IS IMPROVING. PT'S VS STABLE AND PT IS AFEBRILE BUT SLIGHTLY DIAPHORETIC. BT PRESENT AND HYPERACTIVE, ABD IS SOFT BUT SLIGHTLY TENDER TO PALP. NO EDEMA NOTED ON ASSESSMENT. L/S EXP WHEEZES IN THE UPPER LOBES AND DIM T/O. PT IS ON RA. BARON IS PATENT AND DRAINING TO GRAVITY. CALL LIGHT IN REACH, WILL CONTINUE TO MONITOR.
--- NOTE | 2019-05-03 18:45 | NUR ---
SHIFT SUMMARY. PT HAS BEEN C/O OF ABD PAIN AND PAIN IN HIS SCROTUM/GROIN AREA. ON ASSESSMENT IT WAS NOTED THAT THE PT'S RIGHT TESTICAL WAS MUCH LARGER THAN THE LEFT, PT'S SCROTUM AND GROIN AREA IS VERY TENDER TO ANY TYPE OF TOUCH, NO EDEMA OR REDNESS IS NOTED. PT'S VS HAVE BEEN STABLE T/O SHIFT. BARON IS PATENT AND DRAINING CLOUDY YELLOW URINE TO GRAVITY. PT'S BLOOD CULTURES CAME BACK POSITIVE, PROVIDER AWARE. PT STATED THAT HE FELT LIKE HE WAS HAVING A HARD TIME BREATHING O2 SATS WERE 96% ON RA, L/S ASSESSED AND DIM WHEEZES HEARD T/O, PT STATED HE USED 2L O2 PRN AT HOME, THIS WAS PLACED FOR PT'S COMFORT. PT HAS BEEN MEDICATED FOR PAIN AND NAUSEA PER EMAR. CALL LIGHT IN REACH, BED IS LOCKED AND LOW WILL CONTINUE TO MONITOR UNTIL REPORT IS GIVEN TO ONCOMING RN.
--- NOTE | 2019-05-03 22:50 | NUR ---
transfer report to Medical floor MASOUD Aldana on PT being transferred to 333. PT still has orourke from admission # 20 hebrew with 10 ml bulb which was last replaced at [facility] about 1 month ago per PT. PT tolerating some full liquids, in contact isolation due to pending GI panel. No stools. On Tele monitor afib 80s to 90s with PVCs.
--- NOTE | 2019-05-04 00:48 | NUR ---
TRANSFER: PATIENT IS RECIEVED FROM PCU, REPORTING PAIN IN GROIN AND ABDOMEN. PATIENT HAS A CHRONICH BARON THAT WAS NOT CHANGED ON ADMISSION. PATIENT REPORTS HISTORY OF HIGH AMOUNTS OF SEDIMENT REQUIRING FREQUENT CATH CHANGES. THEIR IS A LARGE AMOUNT OF SEDIMENT. PATIENT WAS GIVEN TYLENO AND IV FENTANYL FOR PAIN AND BARON IS REPLACED WITH A 20 F COUDE. PATIENT TOLERATED PROCEEDURE WELL.
[2019-05-04 00:59] LABS: Source, Urine Catheter
[2019-05-04 01:04] LABS: Appearance, Urine Cloudy (Clear); Bilirubin, Urine Neg (Neg); Blood, Urine 5+ (Neg); Color, Urine Yellow (P-Yellow); Glucose Qualitative, Urine Neg (Neg); Ketones, Urine Neg (Neg); Leukocyte Esterase, Urine 3+ (Neg); Nitrite, Urine Pos (Neg); Protein, Urine 3+ (Neg); Urobilinogen, Urine NORM (Normal)
[2019-05-04 01:10] LABS: White Blood Cells, Urine 25-50 /hpf (0-5)
[2019-05-04 01:12] LABS: Amorphous Light (0-Heavy); Bacteria Mod /hpf; Squamous Epithelial Cells Not Seen /hpf (Few); Uric Acid Crystals Few /hpf
--- NOTE | 2019-05-04 03:42 | NUR ---
: IT IS NOTED ONLY 525 ML OF OUTPUT FROM BARON IN THE LAST 24 HOUR. PATIENT IS SOB AND HAS COARSE DIMINISHED BREATH SOUNDS WITH HISTORY OF CHF. DR JAVIER IS UPDATED ON ABOVE INFORMATION. AN ORDER TO HOLD IVF UNTIL EVALUATED BY MD IN THE MORNING WAS OBTAINED.
[2019-05-04 05:29] LABS: BASOPHILS ABSOLUTE AUTO 0.04 K/mm3 (0.00-0.23); BASOPHILS PERCENT AUTO 0 % (0-2); EOSINOPHILS ABSOLUTE AUTO 0.13 K/mm3 (0.00-0.68); EOSINOPHILS PERCENT AUTO 1 % (0-6); Hemoglobin 10.6 g/dL (13.5-17.5); IMMATURE GRAN ABSOLUTE AUTO 0.27 K/mm3 (0.00-0.10); IMMATURE GRAN PERCENT AUTO 2 % (0-1); LYMPHOCYTES ABSOLUTE AUTO 1.33 K/mm3 (0.84-5.20); LYMPHOCYTES PERCENT AUTO 12 % (21-46); MONOCYTES ABSOLUTE AUTO 1.48 K/mm3 (0.16-1.47); MONOCYTES PERCENT AUTO 13 % (4-13); Mean Corpuscular HGB 31.5 pg (26.0-34.0); Mean Corpuscular HGB Conc 31.2 g/dL (31.5-36.5); Mean Corpuscular Volume 101 fL (80-100); NEUTROPHILS PERCENT AUTO 72 % (41-73); Platelet Count 170 K/mm3 (150-400); RDW Coefficient Variation 16.4 % (11.7-14.2); RDW Standard Deviation 61.7 fL (35.1-46.3); Red Blood Cell Count 3.36 M/mm3 (4.30-5.90); White Blood Cell Count 11.55 K/mm3 (4.00-11.30)
[2019-05-04 05:54] LABS: Percent Saturation 20.6 % (20.0-50.0)
[2019-05-04 05:57] LABS: Albumin, Blood 1.9 g/dL (3.4-5.0); Albumin/Globulin Ratio 0.5 (0.8-1.8); Bilirubin, Total 0.3 mg/dL (0.1-1.0); Bun/Creatinine Ratio 26.8 (12.0-20.0); Calcium, Blood 7.5 mg/dL (8.5-10.1); Creatinine, Blood 1.79 mg/dL (0.60-1.20); Globulin, Blood 3.7 g/dL (2.2-4.0); Potassium, Blood 4.5 mmol/L (3.5-5.5); Total Protein, Blood 5.6 g/dL (6.4-8.2)
--- NOTE | 2019-05-04 06:35 | NUR ---
SHIFT SUMMARY: PATIENT CONTINUES TO REPORT GROIN AND ABDOMIN PAIN INTERMITTENTLY, TYLENOL AND IV FENATYLY ARE EFFECTIVE FOR PAIN CONTROL. PATIENT REQUESTED BEDPAN BUT WAS UNBLE TO HAVE A BM. PATIENT HAS NOT HAD A BM SINCE ADMISSION. PATIENT NEEDS ASSISTANCE WITH T&P AND REPORTS NOT FEELING STONG ENOUGH TO TRANSFER TO [facility]. IVF ARE ON HOLD PER DR JAVIER. BARON HAS DRAINED 250ML SINCE TRANSFER TO UNIT, WITH 175ML SINCE CATH REPLACEMENT. PATIENT REPORTED NAUSEA THIS MORNING AND WAS GIVEN ZOFRAN WITH GOOD EFFECT.
--- NOTE | 2019-05-04 17:44 | NUR ---
Spiritual Care inital note: Lengthy visit with Gui this afternoon. He was talkative and welcoming of companionship. He is active in his bee and appreciaitive of prayer and spiritual support. Provided theraputic listening to portions of Gui's life review. His spouse of 60 years 6 years ago. They had five sons; two remaining. Sons are not local. Gui admits to loneliness and tells me that because of this, he took in a woman who "needed help." She has stolen from him, lied to him, is actively using drugs/etoh, and has numerous friends staying in his home. Gui feels it is his duty as a Pentecostal to continue to forgive her and give her "another chance." He admits his son is angry about this. I counseled Gui about self-care and protection--that as Christians we are not to be used/abused. Gui is satisfied with his Full-Code status. He tells me he is not afraid of , but his mom lived to be 103 and he wants to surpass that. He states that the [facility] has an Advanced Directive on file naming his son, Rubens, as MPOA. We prayed together for healing. We had an easy rapport. I will remain available.
--- NOTE | 2019-05-04 18:06 | NUR ---
SHIFT SUMMARY- PT A/OX4, 1 ASSIST UP TO CHAIR. PT MEDICATED FOR PAIN TO ABD, KIDNEYS, AND GROIN. LS CLEAR, ON 2L N/C. TELE AFLUTTER AT 75. CHRONIC INDWELLING BARON PATENT AND DRAINING MARIAELENA URINE. PT/OT EVAL COMPLTED. PT STARTED ON REGULAR DIET ADN TOLERATED DINNER WELL. NO OTHER ACUTE CHANGES THIS SHIFT.
--- NOTE | 2019-05-05 06:51 | NUR ---
SALES DEPARTMENT SUPERVISOR SUMMARY slept well. woke when antibiotics hung at midnight and was extremelly painful in flank and scrotal areas. very reminiscent of younger times, enjoys talking about his boys. pain resolved to tolerable level after approx 1/2 hour, and patient went back to sleep. very strong, dry hacking cough while sleeping the latter part of the night.
--- NOTE | 2019-05-05 07:08 | NUR ---
SON ERICA LINCOLN WOULD LIKE A CALL FROM RADIUS CORNER MACHINE OPERATOR. HE IS VERY CONCERNED ABOUT HIS FATHERS NOT BEING ADEQUATE FOR HIS NEEDS. HIS NUMBER IS [phone].
[2019-05-05 08:34] LABS: BASOPHILS ABSOLUTE AUTO 0.03 K/mm3 (0.00-0.23); BASOPHILS PERCENT AUTO 0 % (0-2); EOSINOPHILS ABSOLUTE AUTO 0.19 K/mm3 (0.00-0.68); EOSINOPHILS PERCENT AUTO 2 % (0-6); Hematocrit 35.8 % (37.0-53.0); IMMATURE GRAN ABSOLUTE AUTO 0.29 K/mm3 (0.00-0.10); IMMATURE GRAN PERCENT AUTO 2 % (0-1); LYMPHOCYTES ABSOLUTE AUTO 1.04 K/mm3 (0.84-5.20); LYMPHOCYTES PERCENT AUTO 8 % (21-46); MONOCYTES ABSOLUTE AUTO 1.25 K/mm3 (0.16-1.47); MONOCYTES PERCENT AUTO 10 % (4-13); Mean Corpuscular HGB 31.6 pg (26.0-34.0); Mean Corpuscular HGB Conc 30.7 g/dL (31.5-36.5); Mean Corpuscular Volume 103 fL (80-100); Mean Platelet Volume 10.2 fL (9.1-12.4); NEUTROPHILS ABSOLUTE AUTO 10.17 K/mm3 (1.96-9.15); NEUTROPHILS PERCENT AUTO 79 % (41-73); Platelet Count 176 K/mm3 (150-400); RDW Coefficient Variation 16.6 % (11.7-14.2); RDW Standard Deviation 62.6 fL (35.1-46.3); Red Blood Cell Count 3.48 M/mm3 (4.30-5.90); White Blood Cell Count 12.97 K/mm3 (4.00-11.30)
[2019-05-05 08:46] LABS: Bun/Creatinine Ratio 29.3 (12.0-20.0); Calcium, Blood 7.9 mg/dL (8.5-10.1); Creatinine, Blood 1.67 mg/dL (0.60-1.20); Potassium, Blood 4.9 mmol/L (3.5-5.5)
--- NOTE | 2019-05-05 16:55 | NUR ---
SHIFT SUMMARY- PT A/OX4, MEDICATED X2 FOR PAIN TO ABD, KIDNDEYS AND GROIN. PT TOLERATING PO INTAKE. PT UP TO CHAIR WITH 1 ASSIST. LS DIMINISHED, ON 2.5L N/C, LOOSE NPC. TELE AFIB AT 83, TELE DC'D TODAY. CHRONIC BARON WITH 400ML OUT THIS SHIFT. NO OTHER ACUTE CHANGES THIS SHIFT.
--- NOTE | 2019-05-05 17:57 | NUR ---
PATIENT DID NOT EAT DINNER THIS SHIFT. PATIENT STATED HE WAS NOT HUNGRY WHEN I BROUGHT HIS TRAY IN ROOM. I OFFERED ALTERNATIVES AND HE DECLINED. PATIENT REFUSED TRAY WHEN I TRIED TO GIVE IT TO HIM. RN NOTIFIED.
--- NOTE | 2019-05-06 02:00 | NUR ---
EMPLOYEE COUNSELOR CALLED TO [facility] FLOOR ROOM 333, PT C/O INCREASING OXYGEN NEEDS REQUIRING INCREASE FROM 2LNC TO 15L NRB. PT SKIN COOL AND MOTTLED BILATERALLY FROM ELBOW DOWN AND KNEES DOWN. PT REPORTING INCREASING ABDOMINAL/FLANK PAIN. PT TRANSFERRED TO ICU 4 AT 0115. CENTRAL LINE PLACED IN RIGHT FEMORAL ARTERY AND 500 ML FLUID BOLUS ORDERED FOLLOWED BY 1.5L MAINTANENCE FLUID @75 ML/HR. PT HAD INCONTINENT LOOSE BOWEL MOVEMENT DURING TRANSPORT. PT'S STOMACH APPEARS SEVERELY DISTENDED R>L, PT REPORTS INTENSE 7/10 PAIN WITH PALPATION AND WITH ANY TYPE OF MOVEMENT. PT TRANSPORTED TO IMAGING FOR ABD/PELVIC CT AND CHEST XRAY. CT SHOWS LOOSE STOOL IN COLON. SPOKE WITH DR. JAVIER REGARDING IMAGING RESULTS AND PT'S REPORT OF DIARRHEA FOR "SEVERAL WEEKS", SUGGESTED R/O C-DIFF WITH NEXT BM. PER DR. JAVIER WE WILL HOLD OFF ON TESTING FOR C-DIFF UNTIL PT BEGINS HAVING "PROFUSE DIARRHEA". PT REPORTS THAT HE HAS NOT HAD ANY BOWEL MOVEMENTS SINCE BEING ADMITTED TO THE HOSPITAL. PT CURRENTLY ON BIPAP 10/5, FIO2 40% WITH SATS IN THE MID 90'S. LUNG SOUNDS COARSE BILATERAL UPPER LOBES, DIM T/O. FAMILY UPDATED ON PT'S STATUS AND TRANSFER TO ICU.
[2019-05-06 02:43] LABS: BASOPHILS ABSOLUTE AUTO 0.03 K/mm3 (0.00-0.23); BASOPHILS PERCENT AUTO 0 % (0-2); EOSINOPHILS ABSOLUTE AUTO 0.07 K/mm3 (0.00-0.68); EOSINOPHILS PERCENT AUTO 1 % (0-6); Hematocrit 32.9 % (37.0-53.0); Hemoglobin 10.5 g/dL (13.5-17.5); IMMATURE GRAN ABSOLUTE AUTO 0.24 K/mm3 (0.00-0.10); IMMATURE GRAN PERCENT AUTO 2 % (0-1); LYMPHOCYTES ABSOLUTE AUTO 0.34 K/mm3 (0.84-5.20); LYMPHOCYTES PERCENT AUTO 3 % (21-46); MONOCYTES ABSOLUTE AUTO 0.33 K/mm3 (0.16-1.47); MONOCYTES PERCENT AUTO 2 % (4-13); Mean Corpuscular HGB 32.2 pg (26.0-34.0); Mean Corpuscular HGB Conc 31.9 g/dL (31.5-36.5); Mean Corpuscular Volume 101 fL (80-100); Mean Platelet Volume 9.8 fL (9.1-12.4); NEUTROPHILS ABSOLUTE AUTO 12.84 K/mm3 (1.96-9.15); NEUTROPHILS PERCENT AUTO 93 % (41-73); Platelet Count 191 K/mm3 (150-400); RDW Coefficient Variation 16.2 % (11.7-14.2); RDW Standard Deviation 60.7 fL (35.1-46.3); Red Blood Cell Count 3.26 M/mm3 (4.30-5.90); White Blood Cell Count 13.85 K/mm3 (4.00-11.30)
[2019-05-06 03:01] LABS: Albumin, Blood 1.9 g/dL (3.4-5.0); Albumin/Globulin Ratio 0.5 (0.8-1.8); Bilirubin, Total 0.4 mg/dL (0.1-1.0); Bun/Creatinine Ratio 24.9 (12.0-20.0); Calcium, Blood 7.9 mg/dL (8.5-10.1); Creatinine, Blood 1.81 mg/dL (0.60-1.20); Globulin, Blood 3.9 g/dL (2.2-4.0); Potassium, Blood 4.9 mmol/L (3.5-5.5); Total Protein, Blood 5.8 g/dL (6.4-8.2)
[2019-05-06 03:05] LABS: International Normalized Ratio 1.11; Prothrombin Time Results 11.7 Sec (9.7-11.5)
[2019-05-06 03:21] LABS: Base Excess Venous -3.4 mmol/L; Bicarbonate Venous 19.6 mmol/L (24.0-30.0); PCO2 Venous 55.7 mmHg (38-42); PO2 Venous 16.2 mmHg (38-42); pH Blood Venous 7.24 (7.34-7.37)
[2019-05-06] MEDS ORDERED: CEFD300 PO (04:17)
[2019-05-06] MEDS ORDERED: FLUC200 PO (04:18)
[2019-05-06] MEDS ORDERED: GUAI200 PO (04:19)
[2019-05-06 05:52] LABS: PCO2 Arterial 36.7 mmHg (35-45); PO2 Arterial 129 mmHg (80-100); pH Blood Arterial 7.38 (7.35-7.45)
--- NOTE | 2019-05-06 06:09 | NUR ---
NO ACUTE CHANGES SINCE TRANSFER TO ICU. PT COMPLAINED OF 7/10 FLANK/ABDOMINAL PAIN, TREATED PER EMAR WITH GOOD RESULT. 500 ML CLOUDY YELLOW URINE OUTPUT. PT'S VSS. WILL REPORT TO DAYSHIFT NURSE.
--- NOTE | 2019-05-06 16:57 | NUR ---
Initial Visit: Pt admitted for sepsis related to a UTI infection. Has an indwelling orourke catheter, CHF, COPD, a fib, hypertension, MRSA, hernia, osteoarthritis, DM2, rheumatoid arthritis. Pt had a rapid response called last night during his admission. Pt is alert, oriented to situation and self. He has been painful and getting IV pain medications. He reports that they are effective for about 4 hours. His pain, he describes as "all over," not able to give a number on a scale for severity. He appears a little forgetful. Pt enjoyed conversation. He is difficult to redirect back to the issues at hand. He did state that he would like to remain a full code at this time. He has raised a granddaughter that lives with him. She is 18 or 19 years old and will be graduating from [employer]. He reports that his goal is to stay alive until at least then. He has a caregiver that lives in an RV on his property. She cooks two meals per day for him and does his laundry and light housekeeping. Pt is limited in mobility and reports that up until 1-2 months ago and he started having extreme weakness. He reports that it became difficult for him to stand up. Discussed life saving interventions again with pt. He states that he does understand the risk for sternal fracture and rib damage with chest compressions; also the risk for infection if intubated. He states again that he wants to stay alive until November of next year. He has a son that is equally invested in his granddaughter's wellbeing and knows her well. Granddaughter's mother lives in [facility], has since "moved on," remarried with children. Pt's son is his alternate decision maker with his granddaughter second. Stayed with pt, using active listening skills, gentle touch to promote wellness. KPS 50% PPS 50%
--- NOTE | 2019-05-06 20:00 | NUR ---
SHIFT SUMMARY: WAS NOTIFIED OF PT HAVING 3 EPPISODES OF LOOSE STOOL IN LESS THAN 24 HOURS AND NO HISTORY OF A PREVIOUS C-DIF TEST DONE. RECEIVED ORDER FOR C-DIF LAB AND SENT OFF THIS EVENING. NO ACUTE S/S OF DISTRESS T/O THE DAY. PT WAS UP TO THE BSC FOR A BOWEL MOVEMENT THIS MORNING AFTER HAVING AN EPPIDOSE OF INCONTINENCE. PT WAS A VERY HEAVY ASSIST OFF OF THE BSC, ONCE UP OFF THE BSC PT HAD NO ISSUES HOLDING HIS OWN WEIGHT USING THE FWW. NO S/S OF RESP DISTRESS NOTED T/O THE DAY. PT WAS PLACED ON 5L O2 VIA NC TO START THEN TITRATED DOWN TO 3L T/O THD DAY. TOOK PT DOWN TO NUC MED THIS AFTERNOON AND PT TOLLERATED LYING FLAT FROM A RESPRATORY STANDPOINT, BUT HAD C/O PAIN ONCE RETURNING BACK TO THE UNIT. REPORT GIVEN TO YULISSA MEREDITH.
[2019-05-07 04:34] LABS: BASOPHILS ABSOLUTE AUTO 0.03 K/mm3 (0.00-0.23); BASOPHILS PERCENT AUTO 0 % (0-2); EOSINOPHILS ABSOLUTE AUTO 0.16 K/mm3 (0.00-0.68); EOSINOPHILS PERCENT AUTO 1 % (0-6); Hematocrit 28.7 % (37.0-53.0); Hemoglobin 8.9 g/dL (13.5-17.5); IMMATURE GRAN ABSOLUTE AUTO 0.18 K/mm3 (0.00-0.10); IMMATURE GRAN PERCENT AUTO 1 % (0-1); LYMPHOCYTES ABSOLUTE AUTO 1.33 K/mm3 (0.84-5.20); LYMPHOCYTES PERCENT AUTO 10 % (21-46); MONOCYTES ABSOLUTE AUTO 1.07 K/mm3 (0.16-1.47); MONOCYTES PERCENT AUTO 8 % (4-13); Mean Corpuscular HGB 31.8 pg (26.0-34.0); Mean Corpuscular Volume 103 fL (80-100); Mean Platelet Volume 10.7 fL (9.1-12.4); NEUTROPHILS ABSOLUTE AUTO 10.49 K/mm3 (1.96-9.15); NEUTROPHILS PERCENT AUTO 79 % (41-73); Platelet Count 180 K/mm3 (150-400); RDW Coefficient Variation 16.2 % (11.7-14.2); RDW Standard Deviation 61.7 fL (35.1-46.3); White Blood Cell Count 13.26 K/mm3 (4.00-11.30)
[2019-05-07 04:55] LABS: Albumin, Blood 1.8 g/dL (3.4-5.0); Albumin/Globulin Ratio 0.5 (0.8-1.8); Bilirubin, Total 0.4 mg/dL (0.1-1.0); Bun/Creatinine Ratio 24.9 (12.0-20.0); Calcium, Blood 7.7 mg/dL (8.5-10.1); Creatinine, Blood 1.73 mg/dL (0.60-1.20); Globulin, Blood 3.4 g/dL (2.2-4.0); Potassium, Blood 4.6 mmol/L (3.5-5.5); Total Protein, Blood 5.2 g/dL (6.4-8.2)
--- NOTE | 2019-05-07 08:29 | NUR ---
ASSUMED CARE: RECEIVED REPORT FROM NOC RN. PT APPEARED TO BE SLEEPING UPON ENTERING ROOM WITH EVEN CHEST RISE AND FALL. NC WITH 3L O2 WAS IN PLACE AND SATS WERE 100%. REMOVED O2 AND PT TOLLERATING WELL AT 98% AT THIS TIME. ASSISTED PT IN TRANSFERING TO THE RECLINER /C 2 PERSON AND A FWW ASSIST. TOLLERATED WELL WITH NO SIGNS OF RESPRATORY DISTRESS. PT WAS NOTED TO HAVE SOME INCONTINENT LOOSE STOOL IN THE BED, CLEANED UP PRIOR TO PT SITTING IN RECLINER. VSS AT THIS TIME. WILL CONTINUE TO MONITOR AND ASSESS FURTHER.
--- NOTE | 2019-05-07 14:08 | NUR ---
RECIEVED PT AT 1320 FROM ICU. PT AOX4 AND COOPERATIVE OF CARE PT TREATED FOR PAIN PER EMAR. SETTLED INTO ROOM AND CALL LIGHT WITHIN REACH. WILL CONTINUE TO MONITOR.
--- NOTE | 2019-05-07 16:56 | NUR ---
PT HAS BEEN AOX4 AND PLEASANT WITH CARE. PT TREATED FOR PAIN UPON ARRIVAL TO FLOOR. SINCE PT HAS BEEN TAKING A LONG NAP. PT RESTING WELL AT THIS TIME NO DISTRESS NOTED WILL CONTINUE TO MONITOR. PT CALLS APPROPRIATELY, CALL LIGHT WITHIN REACH.
[2019-05-08 05:08] LABS: BASOPHILS ABSOLUTE AUTO 0.02 K/mm3 (0.00-0.23); BASOPHILS PERCENT AUTO 0 % (0-2); EOSINOPHILS ABSOLUTE AUTO 0.19 K/mm3 (0.00-0.68); EOSINOPHILS PERCENT AUTO 1 % (0-6); Hemoglobin 9.5 g/dL (13.5-17.5); IMMATURE GRAN ABSOLUTE AUTO 0.27 K/mm3 (0.00-0.10); IMMATURE GRAN PERCENT AUTO 2 % (0-1); LYMPHOCYTES ABSOLUTE AUTO 1.26 K/mm3 (0.84-5.20); LYMPHOCYTES PERCENT AUTO 10 % (21-46); MONOCYTES PERCENT AUTO 9 % (4-13); Mean Corpuscular HGB 31.7 pg (26.0-34.0); Mean Corpuscular HGB Conc 30.6 g/dL (31.5-36.5); Mean Corpuscular Volume 103 fL (80-100); Mean Platelet Volume 11.6 fL (9.1-12.4); NEUTROPHILS ABSOLUTE AUTO 10.38 K/mm3 (1.96-9.15); NEUTROPHILS PERCENT AUTO 78 % (41-73); Platelet Count 174 K/mm3 (150-400); RDW Coefficient Variation 16.2 % (11.7-14.2); RDW Standard Deviation 61.8 fL (35.1-46.3); White Blood Cell Count 13.32 K/mm3 (4.00-11.30)
[2019-05-08 05:33] LABS: Albumin, Blood 1.9 g/dL (3.4-5.0); Albumin/Globulin Ratio 0.5 (0.8-1.8); Bilirubin, Total 0.3 mg/dL (0.1-1.0); Bun/Creatinine Ratio 26.9 (12.0-20.0); Calcium, Blood 8.1 mg/dL (8.5-10.1); Creatinine, Blood 1.56 mg/dL (0.60-1.20); Globulin, Blood 3.7 g/dL (2.2-4.0); Potassium, Blood 5.2 mmol/L (3.5-5.5); Total Protein, Blood 5.6 g/dL (6.4-8.2)
--- NOTE | 2019-05-08 06:30 | NUR ---
88 year old PT with chronic orourke was admitted 05/02/19 with sepsis. He has had 20 [place] citizen coude cath changed 05/04/19. He continues on Tazicef via rt groin central line. AM labs drawn fromn central line and caps changed x 4. PT sats are greater than 90% room air. Medicated several times for acute abd and kidney pain with tylenol 650 mg and fentanyl 50 mcg IV with hgelpful effect. Declined bowel care. PT says BM yesterday. Poor appetite and fluid intake.
--- NOTE | 2019-05-08 18:26 | NUR ---
SHIFT SUMMARY- PT REGULARLY MEDICATED FOR PAIN. MOST RECENT TYLENOL GIVEN AT 1820. PT WORKED WITH PHYSICAL THERAPY TODAY AND GOT UP INTO A CHAIR FOR LUNCH. PT WENT BACK TO BED SHORTLY AFTER LUNCH. PT DECLINED BOWEL CARE MEDICATIONS, STSTED HE GOES 2-3 TIMES A DAY. PT HAS HAD NO BM'S TODAY AND IS NOW STATING THAT HIS BELLY HURTS. WILL SPEAK TO HIM AND ENCOURAGE HIM TO TAKE THE NEXT DOSE OF BOWEL MEDICATIONS. PT HAS A CENTRAL LINE IN THE RIGHT GROIN. BARON CATHETER IS INDWELLING BUT IT LEAKS, BED CHANGE DONE EARLY IN THE SHIFT, PLACED ATTENDS ON THE PT TO PREVENT LEAKAGE FROM GETTING ON THE LINNENS.
[2019-05-09 05:46] LABS: BASOPHILS ABSOLUTE AUTO 0.04 K/mm3 (0.00-0.23); BASOPHILS PERCENT AUTO 0 % (0-2); EOSINOPHILS PERCENT AUTO 2 % (0-6); Hematocrit 31.4 % (37.0-53.0); Hemoglobin 9.5 g/dL (13.5-17.5); IMMATURE GRAN ABSOLUTE AUTO 0.27 K/mm3 (0.00-0.10); IMMATURE GRAN PERCENT AUTO 2 % (0-1); LYMPHOCYTES ABSOLUTE AUTO 1.47 K/mm3 (0.84-5.20); LYMPHOCYTES PERCENT AUTO 11 % (21-46); MONOCYTES ABSOLUTE AUTO 1.09 K/mm3 (0.16-1.47); MONOCYTES PERCENT AUTO 8 % (4-13); Mean Corpuscular HGB 30.8 pg (26.0-34.0); Mean Corpuscular HGB Conc 30.3 g/dL (31.5-36.5); Mean Corpuscular Volume 102 fL (80-100); Mean Platelet Volume 11.8 fL (9.1-12.4); NEUTROPHILS ABSOLUTE AUTO 10.36 K/mm3 (1.96-9.15); NEUTROPHILS PERCENT AUTO 77 % (41-73); Platelet Count 179 K/mm3 (150-400); RDW Coefficient Variation 16.3 % (11.7-14.2); RDW Standard Deviation 61.2 fL (35.1-46.3); Red Blood Cell Count 3.08 M/mm3 (4.30-5.90); White Blood Cell Count 13.43 K/mm3 (4.00-11.30)
--- NOTE | 2019-05-09 05:58 | NUR ---
Elderly Male Army Polk continues to show some improvement from admit with urosepsis. Urine has just grown out yeast for 3rd time. IV antifungal added. PT continues to co constant severe pain abd and kidney area. He has been using fentanyl and tylenol with poor pain control. DR LINK updated and percocet 5/325 mg tab one Q 6 hours rx. Interaction flagged due to fluconazole but he said to limit use of .
[2019-05-09 06:10] LABS: Albumin, Blood 1.8 g/dL (3.4-5.0); Anion Gap 7 mmol/L (6-16); Blood Urea Nitrogen 37 mg/dL (8-24); Bun/Creatinine Ratio 26.4 (12.0-20.0); CO2, Blood 26 mmol/L (21-32); Calcium, Blood 8.1 mg/dL (8.5-10.1); Chloride, Blood 103 mmol/L (98-108); Glomerular Filtration Rate 51 (60-); Glucose, Blood 147 mg/dL (70-99); Phosphorus, Blood 2.3 mg/dL (2.5-4.9); Potassium, Blood 5.3 mmol/L (3.5-5.5); Sodium, Blood 136 mmol/L (136-145)
--- NOTE | 2019-05-09 18:18 | NUR ---
PATIENT A/OX4, UP WITH 2 ASSIST AND FWW TO CHAIR. VSS, ON RA. PATIENT REPORTING INCREASED PAIN TODAY IN L FLANK. PERCOCET AND FENTANYL USED TO TREAT WITH MINIMAL RELIEF. ONE TIME ORDER FOR DIALUDID BROUGHT PAIN DOWN TO A TOLERABLE LEVEL. REPEAT CT OF ABDOMEN ORDERED TO REEVALUATE KIDNEY STONES. CENTRAL LINE TO R GROIN WNL AND SL BETWEEN ABX. PATIENT TOLERATING ADA DIET. ACHS BLOOD SUGARS, NO COVERAGE NEEDED THIS SHIFT. PATIENT CALL APPROPRIATELY FOR ASSISTANCE.
--- NOTE | 2019-05-10 04:14 | NUR ---
Patient slept well overnight. Assisted to reposition q2h. PRN percocet was effective for pain overnight.
[2019-05-10 05:34] LABS: BASOPHILS ABSOLUTE AUTO 0.02 K/mm3 (0.00-0.23); BASOPHILS PERCENT AUTO 0 % (0-2); EOSINOPHILS ABSOLUTE AUTO 0.13 K/mm3 (0.00-0.68); EOSINOPHILS PERCENT AUTO 1 % (0-6); Hematocrit 30.2 % (37.0-53.0); Hemoglobin 9.4 g/dL (13.5-17.5); IMMATURE GRAN ABSOLUTE AUTO 0.16 K/mm3 (0.00-0.10); IMMATURE GRAN PERCENT AUTO 1 % (0-1); LYMPHOCYTES ABSOLUTE AUTO 1.31 K/mm3 (0.84-5.20); LYMPHOCYTES PERCENT AUTO 10 % (21-46); MONOCYTES ABSOLUTE AUTO 1.01 K/mm3 (0.16-1.47); MONOCYTES PERCENT AUTO 8 % (4-13); Mean Corpuscular HGB 31.9 pg (26.0-34.0); Mean Corpuscular HGB Conc 31.1 g/dL (31.5-36.5); Mean Corpuscular Volume 102 fL (80-100); Mean Platelet Volume 10.6 fL (9.1-12.4); NEUTROPHILS ABSOLUTE AUTO 10.24 K/mm3 (1.96-9.15); NEUTROPHILS PERCENT AUTO 80 % (41-73); Platelet Count 247 K/mm3 (150-400); RDW Standard Deviation 60.6 fL (35.1-46.3); Red Blood Cell Count 2.95 M/mm3 (4.30-5.90); White Blood Cell Count 12.87 K/mm3 (4.00-11.30)
[2019-05-10 05:52] LABS: Albumin, Blood 2.1 g/dL (3.4-5.0); Albumin/Globulin Ratio 0.6 (0.8-1.8); Bilirubin, Total 0.4 mg/dL (0.1-1.0); Bun/Creatinine Ratio 22.4 (12.0-20.0); Calcium, Blood 8.2 mg/dL (8.5-10.1); Creatinine, Blood 1.47 mg/dL (0.60-1.20); Globulin, Blood 3.7 g/dL (2.2-4.0); Potassium, Blood 5.1 mmol/L (3.5-5.5); Total Protein, Blood 5.8 g/dL (6.4-8.2)
--- NOTE | 2019-05-10 18:00 | NUR ---
SHIFT SUMMARY PATIENT MEDICATED X1 FOR PAIN. DENIES NAUSEA AND SHORTNESS OF BREATH. PATIENT WORKED WITH OT AND PT TODAY. PATIENT UP IN CHAIR THIS AFTERNOON. CENTRAL LINE DC'D BY CHARGE NURSE. NEW POWERGLIDE PLACED. PATIENT REPORTS HE IS FEELING BETTER BUT STILL WEAK. CALL LIGHT IN REACH.
--- NOTE | 2019-05-10 18:01 | NUR ---
Spiritual Care routine visit: Mr. Burden was talkative today and appeared to enjoy conversation and companionship. He spoke about his and told me numerous stories regarding ihis love and devotion to her. He is proud of his sons although they live [id number]. He feels that he is getting better, but not fast enough. He is hoping to be fully restored to health. He misses driving and being independant. He has a live-in "care-united states marshal" who apparently does not help all that much. He tells me she is a good dry cell assembly machine tender, but she steals from him. If he reports this, she will go back to snf and he doesn't want that. If he continues to be re-hospitalized, he may need an actual care-united states marshal at home or placement. He says he'd be ok with this. Mr. Burden is delightful and expressed gratitude for visit. He allowed me to pray for him. I will remain available.
[2019-05-11 05:08] LABS: BASOPHILS ABSOLUTE AUTO 0.03 K/mm3 (0.00-0.23); BASOPHILS PERCENT AUTO 0 % (0-2); EOSINOPHILS ABSOLUTE AUTO 0.17 K/mm3 (0.00-0.68); EOSINOPHILS PERCENT AUTO 1 % (0-6); Hematocrit 29.2 % (37.0-53.0); Hemoglobin 8.9 g/dL (13.5-17.5); IMMATURE GRAN ABSOLUTE AUTO 0.17 K/mm3 (0.00-0.10); IMMATURE GRAN PERCENT AUTO 1 % (0-1); LYMPHOCYTES ABSOLUTE AUTO 1.49 K/mm3 (0.84-5.20); LYMPHOCYTES PERCENT AUTO 12 % (21-46); MONOCYTES ABSOLUTE AUTO 1.25 K/mm3 (0.16-1.47); MONOCYTES PERCENT AUTO 10 % (4-13); Mean Corpuscular HGB 31.2 pg (26.0-34.0); Mean Corpuscular HGB Conc 30.5 g/dL (31.5-36.5); Mean Corpuscular Volume 103 fL (80-100); Mean Platelet Volume 11.2 fL (9.1-12.4); NEUTROPHILS ABSOLUTE AUTO 9.22 K/mm3 (1.96-9.15); NEUTROPHILS PERCENT AUTO 75 % (41-73); Platelet Count 221 K/mm3 (150-400); RDW Standard Deviation 60.2 fL (35.1-46.3); Red Blood Cell Count 2.85 M/mm3 (4.30-5.90); White Blood Cell Count 12.33 K/mm3 (4.00-11.30)
[2019-05-11 05:37] LABS: Albumin, Blood 1.9 g/dL (3.4-5.0); Albumin/Globulin Ratio 0.5 (0.8-1.8); Bilirubin, Total 0.5 mg/dL (0.1-1.0); Bun/Creatinine Ratio 21.3 (12.0-20.0); Calcium, Blood 8.2 mg/dL (8.5-10.1); Creatinine, Blood 1.5 mg/dL (0.60-1.20); Globulin, Blood 3.8 g/dL (2.2-4.0); Potassium, Blood 4.8 mmol/L (3.5-5.5); Total Protein, Blood 5.7 g/dL (6.4-8.2)
--- NOTE | 2019-05-11 06:21 | NUR ---
SHIFT SUMMARY: A/OX3. MAKING NEEDS KNOWN. PAINFUL THROUGH THE NIGHT BUT REFUSED PRN ANALGESICS, INSTEAD CHOOSING TO UTILIZE DIFFERENT POSITIONS. MAINTAINING 02 SATS WNL ON RA. NO COUGHING. LSCTA, BASES DIM. SOB WITH EXERTION. TEMP 100.0 THIS MORNING. REPORTS HE SLEPT WELL. BED LOW, CALL BUTTON WITHIN REACH.
--- NOTE | 2019-05-11 16:46 | NUR ---
SHIFT SUMMARY NO ACUTE CHANGES. PATIENT MEDICATED X1 FOR PAIN THIS SHIFT. DENIES NAUSEA AND SHORTNESS OF BREATH. PATIENT WORKED WITH PT/OT TODAY. PATIENT UP 1-2 ASSIST W/GAIT BELT AND FWW. PATIENT UP IN CHAIR THIS AFTERNOON. PATIENT CONTINUES TO HAVE POOR APPETITE, DIETARY CONSULTED WITH PATIENT TODAY. CALL LIGHT IN REACH.
--- NOTE | 2019-05-12 04:05 | NUR ---
RN in room trying to help pt have bm, transferred from bed to commode, vitals performed
--- NOTE | 2019-05-12 06:51 | NUR ---
SHIFT SUMMARY PATIENT HAS BEEN EXPERIENCING CONSTIPATION HE HAS NOT HAD A BOWEL MOVEMENT SINCE 05/08. THE RESUME WRITER PHYSICIAN ORDERED ADDITIONAL BOWEL CARE MEDS TO HELP HIM ALONG. HE WAS GIVEN A SUPPOSITORY FOR WHICH HE SAYS IS STARTING TO FEEL LIKE IT MIGHT BE HELPING. BED IN LOWEST POSITION. CALL LIGHT AND BELONGINGS WITHIN REACH. REPORT GIVEN TO ONCOMING RN.
[2019-05-12] MEDS ORDERED: SENNA PLUS 8.61 EACH PO (12:54)
[2019-05-12] MEDS ORDERED: Humalog100 UNIT/1 SC (12:55)
[2019-05-12] MEDS ORDERED: NYSTRITC TOP (12:56)
[2019-05-12] MEDS ORDERED: Ondansetron Odt8 MG MM (12:57)
[2019-05-12] MEDS ORDERED: Percocet 5-3251 EACH PO (13:00)
--- NOTE | 2019-05-12 15:05 | NUR ---
PT REPORTED FEELING PRETTY CONSTIPATED EARLIER THIS A.M. ENEMA GIVEN BUT UNABLE TO HOLD IT. ASSISTED UP TO BEDSIDE COMMODE WITH ONLY GAS PASSED. HAD DONE A DIGITAL CHECK AND FELT STOOL IN VAULT BUT NO SOLID STOOL WAS EVACUATED WHEN UP. STATES HE HAS HAD THE LIQUID STOOL FOR 3 MONTHS. CALLED REPORT TO JONATHAN AT [facility] AT THE [place] JUST AFTER [facility] TOOK PT IN W/C. ABLE TO TRANSFER USING FWW. TO [facility] VIA W/C.
[2019-05-13] MEDS ORDERED: VITAMIN C500 M1 PO (21:12)
[2019-05-13] MEDS ORDERED: FINA5 PO (21:12)
[2019-05-13] MEDS ORDERED: ASPI325 PO (21:12)
[2019-05-13] MEDS ORDERED: HYDCHL50 PO (21:13)
[2019-05-13] MEDS ORDERED: METO50ER PO (21:14)
[2019-05-13] MEDS ORDERED: STIOLTO RESPIMAT4 GM INH (21:15)
[2019-05-13] MEDS ORDERED: TAMS.4ER PO (21:16)
[2019-05-13] MEDS ORDERED: TRAZ50 PO (21:17)
[2019-05-13] MEDS ORDERED: B Complex-Foli1 EACH PO (21:18)
== END 2019-05-12 14:09 | DRG 871 ==
LOC: ER 09:03 → PCU 17:06 → MEDS 17:06 → PCU 17:35 → MEDS 05-03 23:11 → ICUE 05-06 01:19 → ICUW 05-06 19:00 → MEDS 05-07 13:10
PROVIDERS: Emergency Medicine; Family Medicine; Internal Medicine; Nurse Practitioner Acute Care; ADMIT Internal Medicine
PROC: 06HM33Z Insertion of Infusion Device into Right Femoral Vein, Percutaneous Approach (ICD-10-PCS; principal; 2019-05-06)
PROC: 5A09357 Assistance with Respiratory Ventilation, Less than 24 Consecutive Hours, Continuous Positive Airway Pressure (ICD-10-PCS; 2019-05-06)
DX: A41.9 Sepsis, unspecified organism (principal); J96.01 Acute respiratory failure with hypoxia; I50.33 Acute on chronic diastolic (congestive) heart failure; N17.9 Acute kidney failure, unspecified; N13.6 Pyonephrosis; J44.9 Chronic obstructive pulmonary disease, unspecified; Z79.82 Long term (current) use of aspirin; Z96.653 Presence of artificial knee joint, bilateral; E87.5 Hyperkalemia; M19.90 Unspecified osteoarthritis, unspecified site; E11.9 Type 2 diabetes mellitus without complications; M06.9 Rheumatoid arthritis, unspecified; K21.9 Gastro-esophageal reflux disease without esophagitis; I48.91 Unspecified atrial fibrillation; N40.1 Benign prostatic hyperplasia with lower urinary tract symptoms; E66.9 Obesity, unspecified; Z68.27 Body mass index [BMI] 27.0-27.9, adult; Z79.4 Long term (current) use of insulin
CPT/HCPCS: 36415; 36556; 36600; 71045; 74176; 76770; 76870; 78582; 80048; 80053; 80069; 81001; 82728; 82803; 82947; 83540; 83550; 83605; 83690; 83880; 85025; 85610; 87040; 87077; 87086; 87186; 87493; 93005; 93010; 94640; 94660; 94664; 94667; 94760; 96361; 96365; 96367; 96375; 97110; 97116; 97162; 97166; 97530; 97535; 98960; 99285-25; A9270; A9540; A9558; C1751; J0696; J0713; J0744; J1170; J1450; J1644; J1940; J2405; J2543; J2765; J3010; J7030; J7040; P9046